=== PATIENT | male | born 1975 | race Asian ===

== ENCOUNTER → 2016-06-23 | Outpatient (CLI) | payer BC, OTHER ==
--- NOTE | 2016-06-23 10:09 | RADRPT ---
PROCEDURE: XR pelvis/left hip. CLINICAL INDICATION: Hip pain TECHNIQUE: AP pelvis/AP and lateral left hip views performed COMPARISON: No prior studies are available for comparison. FINDINGS: There is marked deformity of the left femoral head. There is moderate left hip osteoarthrosis. This is associated with joint space narrowing, subchondral sclerosis and osteophytosis. There is normal mineralization. No fractures or osseous lesions are identified. The soft tissues are unremarkable . IMPRESSION: Marked deformity of the left femoral head Moderate left hip osteoarthrosis. RPTAT: [facility] .Horacio Levy MD, MD Date Time Electronically viewed and signed by .Horacio Levy MD, on 06/23/2016 10:09 .B/
== END | disposition home or self-care (01) ==
LOC: HKI 08:58
PROVIDERS: ATTEND Orthopaedic Surgery
DX: M16.12 Unilateral primary osteoarthritis, left hip (principal); M25.752 Osteophyte, left hip; F17.200 Nicotine dependence, unspecified, uncomplicated
CPT/HCPCS: 73502; Z7500; G0463

== ENCOUNTER → 2017-11-20 | Outpatient (CLI) | END | disposition home or self-care (01) ==